=== PATIENT | female | born 1990 | race Caucasian/White ===

== ENCOUNTER 2021-01-20 22:25 | Emergency (ER) | payer MEDICARE ==
[~2021-01-20 22:25] MED LIST: BUSPAR 10MG10 MG PO; NICOTINE PATCH1 EAC1 TD; RISPERIDONE1 MG/1 ML PO; TRAZODONE HCL100 MG PO; VISTARIL50 MG PO
[2021-01-21 00:22] LABS: HEMOGLOBIN 11.8 gm/dl (12.3-15.3); RED BLOOD COUNT 3.99 M/UL (4.00-5.10); WHITE BLOOD COUNT 10.8 K/UL (4.5-11.0)
[2021-01-21 00:23] LABS: BUN/CREATININE RATIO 22 (0-10)
== END 2021-01-21 14:14 | disposition short-term general hospital (02) ==
LOC: ER1 22:25
PROVIDERS: Emergency Medicine
DX: R45.851 Suicidal ideations (principal); Z20.822 Contact with and (suspected) exposure to COVID-19; F17.210 Nicotine dependence, cigarettes, uncomplicated; Z88.5 Allergy status to narcotic agent
CPT/HCPCS: 36415; 80048; 84703; 85025; 87635; 99284

== ENCOUNTER 2021-04-17 15:33 | Emergency (ER) | payer MEDICARE ==
[2021-04-17 17:11] LABS: HEMOGLOBIN 11.8 gm/dl (12.3-15.3); RED BLOOD COUNT 3.92 M/UL (4.00-5.10); WHITE BLOOD COUNT 9.4 K/UL (4.5-11.0)
[2021-04-17 17:43] LABS: BUN/CREATININE RATIO 8 (0-10)
== END 2021-04-18 13:17 ==
LOC: ER1 15:33
PROVIDERS: Internal Medicine
DX: F31.9 Bipolar disorder, unspecified (principal); F20.9 Schizophrenia, unspecified; Z86.73 Personal history of transient ischemic attack (TIA), and cerebral infarction without residual deficits; F17.210 Nicotine dependence, cigarettes, uncomplicated
CPT/HCPCS: 80053; 80307; 81001; 85025; 96372; 99284; G0480; J1200; J1630; J2060

== ENCOUNTER 2021-05-31 17:30 | Emergency (ER) | payer MEDICARE ==
[2021-05-31 18:43] LABS: HEMOGLOBIN 11.6 gm/dl (12.3-15.3); RED BLOOD COUNT 3.86 M/UL (4.00-5.10); WHITE BLOOD COUNT 7.8 K/UL (4.5-11.0)
[2021-05-31 19:14] LABS: BUN/CREATININE RATIO 10 (0-10)
== END 2021-06-01 01:10 | disposition short-term general hospital (02) ==
LOC: ER1 17:30
PROVIDERS: Physician Assistant
DX: R45.851 Suicidal ideations (principal); F17.200 Nicotine dependence, unspecified, uncomplicated; N39.0 Urinary tract infection, site not specified; R79.89 Other specified abnormal findings of blood chemistry; Z20.822 Contact with and (suspected) exposure to COVID-19
CPT/HCPCS: 80053; 80307; 81001; 84703; 85025; 96372; 99285; G0480; J1885; Q0177; U0002

== ENCOUNTER 2021-07-30 21:00 | Emergency (ER) | payer MEDICARE ==
[2021-07-30 22:31] LABS: RED BLOOD COUNT 4.13 M/UL (4.00-5.10); WHITE BLOOD COUNT 7.5 K/UL (4.5-11.0)
[2021-07-30 23:03] LABS: BUN/CREATININE RATIO 12 (0-10)
[2021-08-01 21:10] LABS: CHLAMYDIA TRACHOMATIS, NAA Negative (Negative); NEISSERIA GONORRHOEAE, NAA Negative (Negative)
== END 2021-07-31 10:35 | disposition other institution (70) ==
LOC: ER1 21:00
PROVIDERS: Physician Assistant
DX: R45.851 Suicidal ideations (principal); Z86.19 Personal history of other infectious and parasitic diseases; Z20.822 Contact with and (suspected) exposure to COVID-19
CPT/HCPCS: 71045; 80053; 80307; 81001; 82550; 82553; 83874; 84484; 84703; 85025; 87086; 99285; U0002